=== PATIENT | female | born 1995 | race Asian ===

== ENCOUNTER 2016-06-19 14:44 | Emergency (ER) | payer BC ==
[2016-06-19 15:13] VITALS: TEMP 97.7
--- NOTE | 2016-06-19 15:32 | UCPHY ---
H & P Patient Type: New Chief Complaint Nursing Narrative: l lower abd pain x 2 weeks, continuous for last 3 days, nausea HPI/ROS: HPI CHIEF COMPLAINT: Abdominal pain HISTORY OF PRESENT ILLNESS: This patient is a 21-year-old female, significant past medical history for bipolar disorder, history of substance abuse including alcohol and attention deficit hyperactivity disorder medication abuse, she lives in [place] however she is here in rehab, she presents to the urgent care with left lower quadrant abdominal pain x2 weeks intermittently. She also noticed mucousy stools. No blood. Denies fever, denies chest pain, denies shortness of breath. Pain is currently not present. She denies pelvic pain, vaginal bleeding, vaginal discharge, urinary symptoms. Denies being . She describes the pain is sometimes sharp stabbing sometimes dull ache left lower quadrant. With mucousy stool. Past Medical History: Bipolar disorder Past Surgical History: denies significant surgical history Social History: Daily tobacco, denies drugs, alcohol, and she is in rehab Family History: Noncontributory ROS REVIEW OF SYSTEMS: A comprehensive 10 point review of systems is otherwise negative aside from elements mentioned in the history of present illness. Exam Constitutional triage nursing summary reviewed, vital signs reviewed, awake/ alert. Eyes normal conjunctivae and sclera, EOMI, PERRLA. HENT normal inspection, atraumatic, moist mucus membranes, no epistaxis, neck supple/ no meningismus, no raccoon eyes. Respiratory clear to auscultation bilaterally, normal breath sounds, no respiratory distress, no wheezing. Cardiovascular rate normal, regular rhythm, no murmur, no edema, distal pulses normal. Gastrointestinal soft, non-tender, no rebound, no guarding, normal bowel sounds, no distension, no pulsatile mass. Genitourinary no CVA tenderness. Musculoskeletal no midline vertebral tenderness, full range of motion, no calf swelling, no tenderness of extremities, no meningismus, good pulses, neurovascularly intact. Skin pink, warm, & dry, no rash, skin atraumatic. Neurologic awake, alert and oriented x 3, AAOx3, moves all 4 extremities equally, motor intact, sensory intact, CN II-XII intact, normal cerebellar, normal vision, normal speech. Psychiatric normal mood/affect. Heme/Lymph/Immune no lymphadenopathy. Differential diagnosis includes but is not limited to and in no particular order : Crohn's disease, ulcerative colitis,Bowel obstruction, appendicitis, gallbladder disease, diverticulitis, colitis, enteritis, perforated viscus, gastritis, GERD, esophagitis, urinary tract infection, pyelonephritis, kidney stones Medical Decision Making: This patient will have an IV established, she will receive IV fluids 1 L normal saline, she will have a CT scan abdomen pelvis with IV contrast rule out Crohn's disease, colitis, diverticulitis or also colitis. Her acute inflammatory intra-abdominal process. Will check belly blood work, lipase CBC, LFTs, urinalysis. And will re-evaluate. At this time she is not having pain to be no pain medicine given at this time. Re-evaluation: CT scan of the abdomen pelvis with IV contrast The results of the study are this shows constipation no evidence of colitis or diverticulitis, is also noted that her IUD is malpositioned in her cervix, there is no free air, no free fluid this will need to be followed up with OBGYN.. The study was read by Dr. Augustin. I viewed the images myself on the PACS system. 1727: this patient's CT scan has been reviewed there is no evidence of acute inflammatory process normal appendix. Blood work reviewed normal. Urinalysis normal. Not . Incidental findings that her IUD is malposition and her cervix is will need to be followed up with OBGYN outpatient. She has no free air or free fluid. She is constipated on her CT scan or prescribed her MiraLax as most likely is the cause of her left-sided abdominal pain. She has no vaginal pain or low pelvic pain to explain malposition of IUD. Source: Patient - Personal History LMP (Females 10-55): IUD In Place - Medical/Surgical History Other PMH: bipolar, alcohol dependency - Family History Significant Family History: No pertinent family hx - Social History Smoking Status: Current every day smoker Constitutional: Initial Vital Signs Temperature (C) 36.5 C 06/19/16 15:10 Heart Rate 74 06/19/16 15:10 Respiratory Rate 16 06/19/16 15:10 Blood Pressure 114/60 06/19/16 15:10 O2 Sat (%) 96 06/19/16 15:10 O2 Delivery Mode Room Air Allergies/Adverse Reactions: Penicillins Allergy (Verified 06/19/16 15:09) Home Medications: Medication Instructions Recorded GABAPENTIN 06/19/16 LaMICtal 06/19/16 Polyethylene Glycol 3350 [Miralax 17 gm PO DAILY #2 pkt 06/19/16 17 gm (*)] Ziprasidone HCl 06/19/16 traZODone 06/19/16 Medical Decision Making - Data Points Laboratory Results: Laboratory Results 06/19/16 15:55 06/19/16 15:55 06/19/16 06/19/16 06/19/16 16:30 15:55 15:55 WBC RBC Hgb Hct MCV MCH MCHC RDW Plt Count MPV Neut % (Auto) Lymph % (Auto) [place] % (Auto) Eos % (Auto) Baso % (Auto) Nucleat RBC Rel Count Absolute Neuts (auto) Absolute Lymphs (auto) Absolute Monos (auto) Absolute Eos (auto) Absolute Basos (auto) Absolute Nucleated RBC Immature Gran % Immature Gran # Sodium 143 mEq/L mEq/L (134-144) Potassium 4.4 mEq/L mEq/L (3.5-5.2) Chloride 102 mEq/L mEq/L (97-110) Carbon Dioxide 30 mEq/l mEq/l (22-31) Anion Gap 11 mEq/L mEq/L (8-16) BUN 14 mg/dL mg/dL (7-23) Creatinine 0.8 mg/dL mg/dL (0.6-1.0) Estimated GFR > 60 Glucose 84 mg/dL mg/dL (70-100) Calcium 9.7 mg/dL mg/dL (8.5-10.4) Total Bilirubin 0.5 mg/dL mg/dL (0.1-1.4) Conjugated Bilirubin 0.3 mg/dL mg/dL (0.0-0.5) Unconjugated Bilirubin 0.2 mg/dL mg/dL (0.0-1.1) AST 26 IU/L IU/L (14-46) ALT 30 IU/L IU/L (9-52) Alkaline Phosphatase 53 IU/L IU/L (38-126) Total Protein 7.3 g/dL g/dL (6.3-8.2) Albumin 4.0 g/dL g/dL (3.5-5.0) Lipase 171.0 IU/L IU/L (23-300) Beta HCG, Qual NEGATIVE Urine Color YELLOW Urine Appearance CLEAR Urine pH 7.5 (5.0-7.5) Ur Specific [place] 1.010 (1.002-1.030) Urine Protein NEGATIVE (NEGATIVE) Urine Ketones NEGATIVE (NEGATIVE) Urine Blood NEGATIVE (NEGATIVE) Urine Nitrate NEGATIVE (NEGATIVE) Urine Bilirubin NEGATIVE (NEGATIVE) Urine Urobilinogen 0.2 EU EU (0.2-1.0) Ur Leukocyte Esterase NEGATIVE (NEGATIVE) Ur Culture Indicated? NOT INDICATED (NI) Urine Glucose NEGATIVE (NEGATIVE) 06/19/16 15:55 WBC 8.47 10^3/uL 10^3/uL (3.80-9.50) RBC 4.54 10^6/uL 10^6/uL (4.18-5.33) Hgb 13.7 g/dL g/dL (12.6-16.3) Hct 42.2 % % (38.0-47.0) MCV 93.0 fL fL (81.5-99.8) MCH 30.2 pg pg (27.9-34.1) MCHC 32.5 g/dL g/dL (32.4-36.7) RDW 13.3 % % (11.5-15.2) Plt Count 311 10^3/uL 10^3/uL (150-400) MPV 9.0 fL fL (8.7-11.7) Neut % (Auto) 53.5 % % (39.3-74.2) Lymph % (Auto) 37.2 % % (15.0-45.0) [place] % (Auto) 7.7 % % (4.5-13.0) Eos % (Auto) 0.8 % % (0.6-7.6) Baso % (Auto) 0.6 % % (0.3-1.7) Nucleat RBC Rel Count 0.0 % % (0.0-0.2) Absolute Neuts (auto) 4.53 10^3/uL 10^3/uL (1.70-6.50) Absolute Lymphs (auto) 3.15 10^3/uL H 10^3/uL (1.00-3.00) Absolute Monos (auto) 0.65 10^3/uL 10^3/uL (0.30-0.80) Absolute Eos (auto) 0.07 10^3/uL 10^3/uL (0.03-0.40) Absolute Basos (auto) 0.05 10^3/uL 10^3/uL (0.02-0.10) Absolute Nucleated RBC 0.00 10^3/uL 10^3/uL (0-0.01) Immature Gran % 0.2 % % (0.0-1.1) Immature Gran # 0.02 10^3/uL 10^3/uL (0.00-0.10) Sodium Potassium Chloride Carbon Dioxide Anion Gap BUN Creatinine Estimated GFR Glucose Calcium Total Bilirubin Conjugated Bilirubin Unconjugated Bilirubin AST ALT Alkaline Phosphatase Total Protein Albumin Lipase Beta HCG, Qual Urine Color Urine Appearance Urine pH Ur Specific [place] Urine Protein Urine Ketones Urine Blood Urine Nitrate Urine Bilirubin Urine Urobilinogen Ur Leukocyte Esterase Ur Culture Indicated? Urine Glucose Medications Given: Discontinued Medications Sodium Chloride (Ns) 1,000 mls @ 0 mls/hr IV ONCE ONE PRN Reason: Wide Open Stop: 06/19/16 15:40 Last Admin: 06/19/16 15:55 Dose: 1,000 mls Departure - Departure Disposition: Home, Routine, Self-Care Clinical Impression: Abdominal pain Qualifiers: Abdominal location: left lower quadrant Qualified Code(s): R10.32 - Left lower quadrant pain Constipation Qualifiers: Constipation type: slow transit constipation Qualified Code(s): K59.01 - Slow transit constipation Condition: Good Instructions: Constipation (ED), Acute Abdominal Pain (ED) Additional Instructions: 1. It is noted on your CT scan abdomen pelvis that her IUD is bowel position did not the right position in her cervix you need to follow up with OBGYN to 1 either have this removed or reposition. I have referred her to OBGYN on-call please call to make appointment. This is not something I can fix in the urgent care tonight. 2. her CT scan shows a lot of constipation I prescribed MiraLax please drink lots of fluids. 3. return to the urgent care or emergency room if develops worsening abdominal pain, fever vomiting. Referrals: NONE *PRIMARY CARE P,. [Primary Care Provider] - As per Instructions Amanda Giraldo DO [Doctor of Osteopathy] - As per Instructions Prescriptions: Polyethylene Glycol 3350 [Miralax 17 gm (*)] 17 gm PO DAILY #2 pkt - PQRS PQRS Measurement: n/a
[2016-06-19] MEDS ORDERED: NS 1,000 ML IV ONE (15:39)
[2016-06-19 16:01] LABS: % IMMATURE GRANULYOCYTES 0.2 % (0.0-1.1); ABSOLUTE IMMATURE GRANULOCYTES 0.02 10^3/uL (0.00-0.10); ADD DIFF? NO; ADD MORPH? NO; ADD SCAN? NO; ATYPICAL LYMPHOCYTE FLAG 20 (0-99); FRAGMENT RBC FLAG 0 (0-99); HEMATOCRIT 42.2 % (38.0-47.0); HEMOGLOBIN 13.7 g/dL (12.6-16.3); LEFT SHIFT FLG 0 (0-99); LIPEMIA HEMOLYSIS FLAG 80 (0-99); MEAN CELL HEMOGLOBIN 30.2 pg (27.9-34.1); MEAN CELL HEMOGLOBIN CONCENTR. 32.5 g/dL (32.4-36.7); PLATELET CLUMPS FLAG 10 (0-99); PLATELET COUNT 311 10^3/uL (150-400); RED BLOOD CELL COUNT 4.54 10^6/uL (4.18-5.33); RED CELL DISTRIBUTION WIDTH 13.3 % (11.5-15.2)
[2016-06-19] MEDS ORDERED: IOPAMIDOL (ISOVUE-300) 100 ML BTL IV ONE (16:02)
[2016-06-19 16:15] LABS: ALANINE AMINOTRANSFERASE 30 IU/L (9-52); ALKALINE PHOSPHATASE 53 IU/L (38-126); ANION GAP 11 mEq/L (8-16); ASPARTATE AMINOTRANSFERASE 26 IU/L (14-46); BILIRUBIN,TOTAL 0.5 mg/dL (0.1-1.4); BILIRUBIN-CONJUGATED 0.3 mg/dL (0.0-0.5); BILIRUBIN-UNCONJUGATED 0.2 mg/dL (0.0-1.1); CALCIUM 9.7 mg/dL (8.5-10.4); CARBON DIOXIDE 30 mEq/l (22-31); CHLORIDE 102 mEq/L (97-110); CREATININE 0.8 mg/dL (0.6-1.0); GLOMERULAR FILTRATION RATE > 60; GLUCOSE 84 mg/dL (70-100); POTASSIUM 4.4 mEq/L (3.5-5.2); SODIUM 143 mEq/L (134-144); TOTAL PROTEIN 7.3 g/dL (6.3-8.2)
[2016-06-19 16:41] LABS: COLOR YELLOW; LEUKOCYTE ESTERASE,URINE NEGATIVE (NEGATIVE); NITRITE,URINE NEGATIVE (NEGATIVE); PH,URINE 7.5 (5.0-7.5)
[2016-06-19 17:42] VITALS: BP 110/82; PULSE 82; RESP 12; O2SAT 92
== END 2016-06-19 17:49 | disposition home or self-care (01) ==
LOC: CED 14:44
DX: T83.32XA Displacement of intrauterine contraceptive device, initial encounter (principal); K59.01 Slow transit constipation; R10.32 Left lower quadrant pain; F10.19 Alcohol abuse with unspecified alcohol-induced disorder; F15.99 Other stimulant use, unspecified with unspecified stimulant-induced disorder; F90.0 Attention-deficit hyperactivity disorder, predominantly inattentive type; F31.9 Bipolar disorder, unspecified; Z72.0 Tobacco use
CPT/HCPCS: 74177-PO; 80048-PO; 80076-PO; 81003-PO; 83690-PO; 84703-PO; 85025-PO; 96360-PO; 99205-PO; G0463-PO; Q9967